=== PATIENT | female | born 1930 | race Caucasian/White ===

== ENCOUNTER 2016-11-30 12:24 | Inpatient (IN) | payer MEDICARE, MEDICAID ==
[~2016-11-30] VITALS: Ht 165.1 cm; Wt 63.0 kg
[2016-11-30 12:24] VITALS: BP_SYST 110
[2016-11-30] MEDS ORDERED: cefTRIAXone 1 GM IVPB PREMIX 50 ML IV ONE (12:45)
[2016-11-30] MEDS ORDERED: ACETAMINOPHEN 650 MG/20.3 ML UDC PO ONE (12:45)
[2016-11-30] MEDS ORDERED: TRAZ-126 PO (12:54)
[2016-11-30] MEDS ORDERED: METO25TA6 PO (12:54)
[2016-11-30] MEDS ORDERED: PARO20TA51 PO (12:54)
[2016-11-30] MEDS ORDERED: ALPR1TAB2 PO (12:54)
[2016-11-30] MEDS ORDERED: HYDR-1189 PO (12:54)
[2016-11-30] MEDS ORDERED: PRO40 PO (12:54)
[2016-11-30] MEDS ORDERED: ACET-2165 PO (12:54)
[2016-11-30] MEDS ORDERED: HYDR-3924 PO (12:54)
[2016-11-30] MEDS ORDERED: IPRA4AER INH (12:54)
[2016-11-30] MEDS ORDERED: FERR-57 PO (12:54)
[2016-11-30] MEDS ORDERED: BACL10TA PO (12:54)
[2016-11-30] MEDS ORDERED: ALPR0.2583 PO (12:54)
[2016-11-30] MEDS ORDERED: TEMA15CA51 PO (12:54)
[2016-11-30 13:00] LABS: BASOPHILS # (AUTO) 0.1 K/uL (0.0-0.2); BASOPHILS % (AUTO) 0.4 % (0.0-2.0); EOSINOPHILS # (AUTO) 0.1 K/uL (0.0-0.4); EOSINOPHILS % (AUTO) 0.3 % (0.0-4.0); HEMATOCRIT 30.9 % (36-48); HEMOGLOBIN 9.8 g/dL (12.0-16.0); LYMPHOCYTES # (AUTO) 1.3 K/uL (1.0-5.5); LYMPHOCYTES % (AUTO) 6.8 % (20.5-51.5); MEAN CORPUSCULAR HEMOGLOBIN 26 pg (27-31); MEAN CORPUSCULAR HGB CONC 32 % (32-36); MEAN CORPUSCULAR VOLUME 83 fL (79.0-98.0); MONOCYTES # (AUTO) 1.8 K/uL (0.0-1.0); MONOCYTES % (AUTO) 9.3 % (1.7-9.3); NEUTROPHILS # (AUTO) 15.6 K/uL (1.8-7.7); NEUTROPHILS % (AUTO) 83.2 % (40.0-70.0); PLATELET COUNT (AUTO) 643 K/uL (130-430); RED BLOOD CELL COUNT(AUTO) 3.74 MIL/uL (4.2-6.2); RED CELL DISTRIBUTION WIDTH 16.9 % (9.0-15.0); WHITE BLOOD COUNT (AUTO) 18.9 K/uL (4.8-10.8)
[2016-11-30] MEDS ORDERED: ACETAMINOPHEN 650 MG SUPP.RECT RC ONE (13:00)
[2016-11-30 13:14] LABS: ANION GAP 8 (5-15); CALCIUM 8.9 mg/dL (8.4-11.0); CHLORIDE 100 mmol/L (98-107); CREATININE 0.98 mg/dL (0.55-1.30); GLUCOSE 159 mg/dL (70-99); POTASSIUM 3.9 mmol/L (3.5-5.1); SODIUM SERUM 133 mmol/L (136-145); UREA NITROGEN, BLOOD 32 mg/dL (8-21)
[2016-11-30 13:15] LABS: BILIRUBIN,URINE NEGATIVE (NEGATIVE); BLOOD, URINE NEGATIVE (NEGATIVE); CLARITY/URINE CLEAR (CLEAR); COLOR,URINE YELLOW (YELLOW); GLUCOSE,URINE NEGATIVE (NEGATIVE); KETONES,URINE NEGATIVE (NEGATIVE); LEUKOCYTE ESTERASE ,URINE NEGATIVE (NEGATIVE); NITRITE, URINE NEGATIVE (NEGATIVE); PROTEIN URINE NEGATIVE (NEGATIVE); UROBILINOGEN,URINE 0.2 (0.2-1.0)
[2016-11-30 13:25] LABS: INR 1.3 (0.8-1.2); PROTHROMBIN TIME 12.9 SECS (9.5-12.5)
[2016-11-30 13:28] LABS: CANNABINOID, URINE NEGATIVE (NEG <=50); OPIATE, URINE POSITIVE (NEG <=100)
[2016-11-30 13:29] LABS: BENZODIAZEPINE, URINE POSITIVE (NEG <=150)
[2016-11-30 13:30] LABS: BARBITURATE, URINE NEGATIVE (NEG <=200); COCAINE, URINE NEGATIVE (NEG <=150); METHAMPHETAMINES SCREEN,URINE NEGATIVE (NEG <=500); PHENCYCLIDINE SCREEN,URINE NEGATIVE (NEG <=25); UR TRICYCLIC ANTIDEPRESSANTS NEGATIVE (NEG <=300); URINE AMPHETAMINE NEGATIVE (NEG <=500); URINE METHADONE NEGATIVE (NEG <=200); URINE OXYCODONE SCREEN NEGATIVE (NEG <=100); URINE PROPOXYPHENE SCREEN NEGATIVE (NEG <=300)
[2016-11-30] MEDS ORDERED: NS 500 ML IV ONE ×2 (13:30→14:30)
[2016-11-30] MEDS ORDERED: DIGOXIN 0.5 MG/2 ML AMP IVP ONE (13:30)
[2016-11-30 13:31] LABS: ALANINE AMINOTRANSFERASE 54 U/L (12-78); ALBUMIN 2.3 g/dL (3.4-4.8); ALCOHOL, BLOOD 3 mg/dL (<10); ASPARTATE AMINOTRANSFERASE 99 U/L (10-37); FREE T4 (FREE THYROXINE) 0.7 ng/dL (0.6-1.6); TOTAL BILIRUBIN 0.3 mg/dL (0.0-1.0)
[2016-11-30] MEDS ORDERED: DILTIAZEM HCL 25 MG/5 ML VIAL IVP ONE (14:30)
[2016-11-30] MEDS ORDERED: ONDANSETRON HCL 4 MG/2 ML VIAL IVP PRN (14:30)
[2016-11-30] MEDS ORDERED: ASPIRIN 81 MG TAB.CHEW PO ONE (14:30)
[2016-11-30] MEDS ORDERED: DILTIAZEM HCL 30 MG TABLET PO ONE (14:30)
[2016-11-30] MEDS ORDERED: NITROGLYCERIN 0.4 MG TAB.SUBL SL PRN (14:30)
[2016-11-30] MEDS ORDERED: ASPIRIN 81 MG TAB.CHEW ONE (14:37)
[2016-11-30 15:00] LABS: FREE T4 (FREE THYROXINE) 0.7 ng/dL (0.6-1.6); PHOSPHORUS 3.3 mg/dL (2.7-4.5); THYROID STIMULATING HORMONE 1.9 uIu/mL (0.34-4.82)
[2016-11-30 15:32] VITALS: BP_SYST 90
[2016-11-30] MEDS ORDERED: *HEPARIN PER PHARMACY XX ONE (16:00)
[2016-11-30] MEDS ORDERED: HEPARIN SODIUM,PORCINE 5000 UNITS/ML VIAL IV ONE (16:30)
[2016-11-30] MEDS ORDERED: HEPARIN SODIUM,PORCINE 2000 UNITS/0.4 ML BOLUS IVP PRN (16:30)
[2016-11-30] MEDS ORDERED: HEPARIN SODIUM,PORCINE 3000 UNITS/0.6 ML BOLUS IVP PRN (16:30)
[2016-11-30 16:44] VITALS: BP_SYST 115
[2016-11-30] MEDS: NACL 0.9% 1,000 ML IV SCH (17:22)
[2016-11-30] MEDS: HEPARIN 25,000 UNITS in 250 ML PREMIX IV PRN (18:02)
[2016-11-30] MEDS ORDERED: PIPERACILLIN/TAZOBACTAM 2.25 GM in NS 50 ML IV ONE (20:00)
[2016-11-30 20:17] VITALS: BP_SYST 117
[2016-11-30] MEDS: METOPROLOL TARTRATE 25 MG TABLET PO SCH ×2 (21:00→21:05)
[2016-11-30] MEDS: DOCUSATE SODIUM 100 MG CAPSULE PO SCH ×2 (21:00→21:04)
[2016-11-30] MEDS: FERROUS SULFATE 325 MG TABLET.DR PO SCH ×2 (21:00→21:04)
[2016-11-30] MEDS: DILTIAZEM HCL 30 MG TABLET PO SCH (22:00)
[2016-11-30] MEDS: DILTIAZEM HCL 25 MG/5 ML VIAL IVP PRN (22:09)
[2016-12-01 00:18] VITALS: BP_SYST 106
[2016-12-01] MEDS: DILTIAZEM HCL 25 MG/5 ML VIAL IVP PRN (03:36)
[2016-12-01 04:31] VITALS: BP_SYST 120
[2016-12-01] MEDS: DILTIAZEM HCL 30 MG TABLET PO SCH ×3 (06:00→21:36)
[2016-12-01] MEDS: MORPHINE 2 MG/ML INJ. SYRINGE IVP PRN ×3 (07:50→22:55)
[2016-12-01 07:57] LABS: BASOPHILS # (AUTO) 0.1 K/uL (0.0-0.2); BASOPHILS % (AUTO) 0.3 % (0.0-2.0); EOSINOPHILS # (AUTO) 0.1 K/uL (0.0-0.4); EOSINOPHILS % (AUTO) 0.4 % (0.0-4.0); HEMATOCRIT 31.1 % (36-48); HEMOGLOBIN 9.9 g/dL (12.0-16.0); LYMPHOCYTES # (AUTO) 1.3 K/uL (1.0-5.5); LYMPHOCYTES % (AUTO) 6.4 % (20.5-51.5); MEAN CORPUSCULAR HEMOGLOBIN 26 pg (27-31); MEAN CORPUSCULAR HGB CONC 32 % (32-36); MEAN CORPUSCULAR VOLUME 83 fL (79.0-98.0); MONOCYTES # (AUTO) 0.8 K/uL (0.0-1.0); NEUTROPHILS # (AUTO) 17.3 K/uL (1.8-7.7); NEUTROPHILS % (AUTO) 88.9 % (40.0-70.0); PLATELET COUNT (AUTO) 734 K/uL (130-430); RED BLOOD CELL COUNT(AUTO) 3.76 MIL/uL (4.2-6.2); RED CELL DISTRIBUTION WIDTH 16.8 % (9.0-15.0); WHITE BLOOD COUNT (AUTO) 19.6 K/uL (4.8-10.8)
[2016-12-01 08:14] VITALS: BP_SYST 118
[2016-12-01 08:14] LABS: ANION GAP 7 (5-15); CALCIUM 8.7 mg/dL (8.4-11.0); CHLORIDE 104 mmol/L (98-107); CHOLESTEROL 125 mg/dL (<200); CREATININE 0.86 mg/dL (0.55-1.30); GLUCOSE 105 mg/dL (70-99); HDL CHOLESTEROL 31 mg/dL (>55); LDL CHOLESTEROL 85 mg/dL (<100); SODIUM SERUM 136 mmol/L (136-145); TRIGLYCERIDES 126 mg/dL (30-150); UREA NITROGEN, BLOOD 25 mg/dL (8-21)
[2016-12-01] MEDS ORDERED: DILTIAZEM HCL 30 MG TABLET PO ONE (08:15)
[2016-12-01] MEDS: PANTOPRAZOLE SODIUM 40 MG TAB PO SCH (08:33)
[2016-12-01 08:38] LABS: T4 (THYROXINE) 6.6 ug/dL (4.5-12.0)
[2016-12-01] MEDS: PARoxetine HCL 20 MG TABLET PO SCH (08:40)
[2016-12-01] MEDS: METOPROLOL TARTRATE 25 MG TABLET PO SCH ×2 (08:40→21:35)
[2016-12-01] MEDS: FERROUS SULFATE 325 MG TABLET.DR PO SCH ×2 (08:40→21:34)
[2016-12-01] MEDS: LISINOPRIL 10 MG TABLET (PRINIVIL) PO SCH (08:41)
[2016-12-01] MEDS: ATORVASTATIN 20 MG TABLET PO SCH (09:06)
[2016-12-01] MEDS: ASPIRIN 81 MG TAB.CHEW PO SCH (09:06)
[2016-12-01] MEDS: DOCUSATE SODIUM 100 MG CAPSULE PO SCH ×2 (09:06→21:34)
[2016-12-01] MEDS: NACL 0.9% 1,000 ML IV SCH (09:10)
[2016-12-01] MEDS: ACETAMINOPHEN 325 MG TABLET PO PRN (11:00)
[2016-12-01 13:03] VITALS: BP_SYST 104
[2016-12-01] MEDS: HEPARIN 25,000 UNITS in 250 ML PREMIX IV PRN ×2 (15:04→23:09)
[2016-12-01 16:54] VITALS: BP_SYST 110
[2016-12-01 17:06] LABS: BILIRUBIN,URINE NEGATIVE (NEGATIVE); BLOOD, URINE 3+ (NEGATIVE); CLARITY/URINE HAZY (CLEAR); COLOR,URINE YELLOW (YELLOW); GLUCOSE,URINE NEGATIVE (NEGATIVE); KETONES,URINE NEGATIVE (NEGATIVE); LEUKOCYTE ESTERASE ,URINE NEGATIVE (NEGATIVE); NITRITE, URINE NEGATIVE (NEGATIVE); PROTEIN URINE TRACE (NEGATIVE)
[2016-12-01 17:35] LABS: BACTERIA,URINE MODERATE /HPF (None Seen); RBC,URINE 50-80 /HPF (0-3)
[2016-12-01 17:36] LABS: MUCUS,URINE 1+ /LPF (None Seen)
[2016-12-01] MEDS: PIPERACILLIN/TAZO 2.25G/DEX-IS 50 ML IV SCH ×2 (17:58→23:01)
[2016-12-01 20:00] VITALS: BP_SYST 126
[2016-12-01 20:17] LABS: HEMOGLOBIN A1C 5.7 % (4.8-5.6)
[2016-12-02 00:49] VITALS: BP_SYST 100; BP_SYST 81
[2016-12-02] MEDS: NACL 0.9% 1,000 ML IV SCH ×2 (02:11→16:15)
[2016-12-02] MEDS ORDERED: FLU VACC QS 2017-18(36MOS+)/PF 0.5 ML/SYR SYRINGE I.M. PRN (03:00)
[2016-12-02 04:37] VITALS: BP_SYST 101
[2016-12-02] MEDS: DILTIAZEM HCL 30 MG TABLET PO SCH ×3 (05:35→22:00)
[2016-12-02] MEDS: PIPERACILLIN/TAZO 2.25G/DEX-IS 50 ML IV SCH ×4 (05:35→23:53)
[2016-12-02 08:00] VITALS: BP_SYST 88
[2016-12-02] MEDS: FERROUS SULFATE 325 MG TABLET.DR PO SCH ×2 (08:31→20:23)
[2016-12-02] MEDS: ASPIRIN 81 MG TAB.CHEW PO SCH (08:31)
[2016-12-02] MEDS: DOCUSATE SODIUM 100 MG CAPSULE PO SCH ×2 (08:33→20:23)
[2016-12-02] MEDS: PANTOPRAZOLE SODIUM 40 MG TAB PO SCH (08:33)
[2016-12-02] MEDS: PARoxetine HCL 20 MG TABLET PO SCH (08:33)
[2016-12-02] MEDS: ACETAMINOPHEN 325 MG TABLET PO PRN (08:33)
[2016-12-02] MEDS: ATORVASTATIN 20 MG TABLET PO SCH (08:34)
[2016-12-02] MEDS: LISINOPRIL 10 MG TABLET (PRINIVIL) PO SCH (09:00)
[2016-12-02] MEDS: METOPROLOL TARTRATE 25 MG TABLET PO SCH ×2 (09:00→20:28)
[2016-12-02] MEDS: HEPARIN 25,000 UNITS in 250 ML PREMIX IV PRN (09:59)
[2016-12-02 12:45] VITALS: BP_SYST 101
[2016-12-02 16:45] VITALS: BP_SYST 107
[2016-12-02 20:00] VITALS: BP_SYST 113
[2016-12-03 00:38] VITALS: BP_SYST 112
[2016-12-03 04:29] VITALS: BP_SYST 111
[2016-12-03] MEDS: HEPARIN 25,000 UNITS in 250 ML PREMIX IV PRN (04:42)
[2016-12-03] MEDS: PIPERACILLIN/TAZO 2.25G/DEX-IS 50 ML IV SCH ×3 (05:40→17:16)
[2016-12-03] MEDS: DILTIAZEM HCL 30 MG TABLET PO SCH ×3 (05:49→21:36)
[2016-12-03] MEDS: DILTIAZEM HCL 25 MG/5 ML VIAL IVP PRN (06:08)
[2016-12-03 06:21] LABS: BASOPHILS # (AUTO) 0.1 K/uL (0.0-0.2); BASOPHILS % (AUTO) 0.3 % (0.0-2.0); EOSINOPHILS % (AUTO) 0.1 % (0.0-4.0); HEMATOCRIT 27.3 % (36-48); HEMOGLOBIN 8.8 g/dL (12.0-16.0); LYMPHOCYTES # (AUTO) 0.8 K/uL (1.0-5.5); MEAN CORPUSCULAR HEMOGLOBIN 26 pg (27-31); MEAN CORPUSCULAR HGB CONC 32 % (32-36); MEAN CORPUSCULAR VOLUME 81 fL (79.0-98.0); MONOCYTES # (AUTO) 0.9 K/uL (0.0-1.0); MONOCYTES % (AUTO) 3.2 % (1.7-9.3); NEUTROPHILS # (AUTO) 25.8 K/uL (1.8-7.7); NEUTROPHILS % (AUTO) 93.4 % (40.0-70.0); RED BLOOD CELL COUNT(AUTO) 3.36 MIL/uL (4.2-6.2); WHITE BLOOD COUNT (AUTO) 27.6 K/uL (4.8-10.8)
[2016-12-03 06:28] LABS: PLATELET COUNT (AUTO) 824 K/uL (130-430)
[2016-12-03 06:37] LABS: ANION GAP 11 (5-15); CALCIUM 8.3 mg/dL (8.4-11.0); CHLORIDE 100 mmol/L (98-107); CREATININE 0.85 mg/dL (0.55-1.30); GLUCOSE 121 mg/dL (70-99); PHOSPHORUS 2.7 mg/dL (2.7-4.5); POTASSIUM 3.6 mmol/L (3.5-5.1); SODIUM SERUM 132 mmol/L (136-145); UREA NITROGEN, BLOOD 23 mg/dL (8-21)
[2016-12-03 08:05] VITALS: BP_SYST 109
[2016-12-03] MEDS: NACL 0.9% 1,000 ML IV SCH (08:06)
[2016-12-03] MEDS: FERROUS SULFATE 325 MG TABLET.DR PO SCH ×2 (08:07→21:33)
[2016-12-03] MEDS: LISINOPRIL 10 MG TABLET (PRINIVIL) PO SCH (08:07)
[2016-12-03] MEDS: DOCUSATE SODIUM 100 MG CAPSULE PO SCH ×2 (08:07→21:36)
[2016-12-03] MEDS: PARoxetine HCL 20 MG TABLET PO SCH (08:07)
[2016-12-03] MEDS: METOPROLOL TARTRATE 25 MG TABLET PO SCH ×2 (08:07→21:32)
[2016-12-03] MEDS: ATORVASTATIN 20 MG TABLET PO SCH (08:07)
[2016-12-03] MEDS: PANTOPRAZOLE SODIUM 40 MG TAB PO SCH (08:07)
[2016-12-03] MEDS: ASPIRIN 81 MG TAB.CHEW PO SCH (08:08)
[2016-12-03 11:32] VITALS: BP_SYST 109
[2016-12-03] MEDS ORDERED: HYDROmorphone 1 MG INJ. 1 MG/ML AMPUL IVP PRN (14:45)
[2016-12-03 15:38] VITALS: BP_SYST 116
[2016-12-03 20:10] VITALS: BP_SYST 114
[2016-12-04 00:21] VITALS: BP_SYST 125
[2016-12-04] MEDS: PIPERACILLIN/TAZO 2.25G/DEX-IS 50 ML IV SCH ×4 (00:50→17:08)
[2016-12-04] MEDS: HEPARIN 25,000 UNITS in 250 ML PREMIX IV PRN (03:19)
[2016-12-04] MEDS: NACL 0.9% 1,000 ML IV SCH ×2 (04:50→17:06)
[2016-12-04] MEDS: DILTIAZEM HCL 30 MG TABLET PO SCH ×3 (05:03→22:17)
[2016-12-04 05:52] VITALS: BP_SYST 121
[2016-12-04 06:25] LABS: HEMATOCRIT 25.9 % (36-48); HEMOGLOBIN 8.4 g/dL (12.0-16.0); MEAN CORPUSCULAR HEMOGLOBIN 27 pg (27-31); MEAN CORPUSCULAR HGB CONC 33 % (32-36); MEAN CORPUSCULAR VOLUME 82 fL (79.0-98.0); RED BLOOD CELL COUNT(AUTO) 3.16 MIL/uL (4.2-6.2); RED CELL DISTRIBUTION WIDTH 17.2 % (9.0-15.0)
[2016-12-04 06:49] LABS: ANION GAP 12 (5-15); CALCIUM 8.3 mg/dL (8.4-11.0); CHLORIDE 101 mmol/L (98-107); CREATININE 0.82 mg/dL (0.55-1.30); GLUCOSE 158 mg/dL (70-99); PHOSPHORUS 2.5 mg/dL (2.7-4.5); POTASSIUM 3.3 mmol/L (3.5-5.1); SODIUM SERUM 132 mmol/L (136-145); UREA NITROGEN, BLOOD 25 mg/dL (8-21)
[2016-12-04 07:34] LABS: WHITE BLOOD COUNT (AUTO) 31.5 K/uL (4.8-10.8)
[2016-12-04 07:35] LABS: PLATELET COUNT (AUTO) 780 K/uL (130-430)
[2016-12-04 08:16] VITALS: BP_SYST 118
[2016-12-04] MEDS: PANTOPRAZOLE SODIUM 40 MG TAB PO SCH (08:38)
[2016-12-04] MEDS: ATORVASTATIN 20 MG TABLET PO SCH (08:38)
[2016-12-04] MEDS: ASPIRIN 81 MG TAB.CHEW PO SCH (08:38)
[2016-12-04] MEDS: FERROUS SULFATE 325 MG TABLET.DR PO SCH ×2 (08:38→21:08)
[2016-12-04] MEDS: METOPROLOL TARTRATE 25 MG TABLET PO SCH ×2 (08:38→21:10)
[2016-12-04] MEDS: PARoxetine HCL 20 MG TABLET PO SCH (08:38)
[2016-12-04] MEDS: DOCUSATE SODIUM 100 MG CAPSULE PO SCH ×2 (08:38→21:08)
[2016-12-04] MEDS: LISINOPRIL 10 MG TABLET (PRINIVIL) PO SCH (08:39)
[2016-12-04 08:57] LABS: BASOPHILS % (MANUAL) 0 % (0-2); EOSINOPHILS % (MANUAL) 0 % (0-7); LYMPHOCYTES % (MANUAL) 5 % (20-46); MONOCYTES % (MANUAL) 6 % (0-11)
[2016-12-04] MEDS ORDERED: IOHEXOL 350 mgI/mL, 150 ML INFUS..BTL IV ONE (10:46)
[2016-12-04 12:33] VITALS: BP_SYST 120
[2016-12-04] MEDS: VANCOMYCIN HCL 1,000 MG in NS 250 ML IV SCH (13:12)
[2016-12-04] MEDS: MORPHINE 2 MG/ML INJ. SYRINGE IVP PRN (13:57)
[2016-12-04] MEDS ORDERED: LORazepam 2 MG/ML VIAL IM ONE (14:30)
[2016-12-04] MEDS: KCL 20 mEq in 0.45% NS 1000 mL 1,000 ML IV SCH (14:46)
[2016-12-04 17:04] VITALS: BP_SYST 104
[2016-12-04] MEDS ORDERED: FLUCONAZOLE 200 mg/ NS 100 ML IV ONE (18:00)
[2016-12-04 20:00] VITALS: BP_SYST 116
[2016-12-05 00:14] VITALS: BP_SYST 108
[2016-12-05] MEDS: PIPERACILLIN/TAZO 2.25G/DEX-IS 50 ML IV SCH ×3 (00:28→11:10)
[2016-12-05] MEDS: HEPARIN 25,000 UNITS in 250 ML PREMIX IV PRN (02:36)
[2016-12-05] MEDS: KCL 20 mEq in 0.45% NS 1000 mL 1,000 ML IV SCH ×2 (02:44→11:01)
[2016-12-05 06:10] VITALS: BP_SYST 111
[2016-12-05] MEDS: DILTIAZEM HCL 30 MG TABLET PO SCH ×2 (06:12→14:42)
[2016-12-05 08:55] VITALS: BP_SYST 102
[2016-12-05] MEDS: FERROUS SULFATE 325 MG TABLET.DR PO SCH (10:28)
[2016-12-05] MEDS: ATORVASTATIN 20 MG TABLET PO SCH (10:29)
[2016-12-05] MEDS: PANTOPRAZOLE SODIUM 40 MG TAB PO SCH (10:29)
[2016-12-05] MEDS: PARoxetine HCL 20 MG TABLET PO SCH (10:29)
[2016-12-05] MEDS: ASPIRIN 81 MG TAB.CHEW PO SCH (10:30)
[2016-12-05] MEDS: LISINOPRIL 10 MG TABLET (PRINIVIL) PO SCH (10:30)
[2016-12-05] MEDS: DOCUSATE SODIUM 100 MG CAPSULE PO SCH (10:30)
[2016-12-05] MEDS: METOPROLOL TARTRATE 25 MG TABLET PO SCH (10:31)
[2016-12-05] MEDS ORDERED: LORazepam 2 MG/ML VIAL IVP PRN (10:45)
[2016-12-05 11:16] VITALS: BP_SYST 116
[2016-12-05] MEDS: VANCOMYCIN HCL 1,000 MG in NS 250 ML IV SCH (12:12)
[2016-12-05 16:23] VITALS: BP_SYST 98
[2016-12-05 17:56] VITALS: BP_SYST 98
== END 2016-12-05 18:30 | DRG 871 ==
LOC: SED 12:24 → STU 14:19
PROVIDERS: ADMIT Family Medicine; ATTEND Family Medicine
DX: A41.9 Sepsis, unspecified organism (principal); I21.A1 Myocardial infarction type 2; J69.0 Pneumonitis due to inhalation of food and vomit; G93.41 Metabolic encephalopathy; I96 Gangrene, not elsewhere classified; E87.1 Hypo-osmolality and hyponatremia; N39.0 Urinary tract infection, site not specified; D64.9 Anemia, unspecified; D75.89 Other specified diseases of blood and blood-forming organs; F03.90 Unspecified dementia, unspecified severity, without behavioral disturbance, psychotic disturbance, mood disturbance, and anxiety; F41.1 Generalized anxiety disorder; I48.91 Unspecified atrial fibrillation; I73.9 Peripheral vascular disease, unspecified; K56.41 Fecal impaction; E78.5 Hyperlipidemia, unspecified; N18.9 Chronic kidney disease, unspecified; R62.7 Adult failure to thrive; Z51.5 Encounter for palliative care; M62.838 Other muscle spasm; M62.81 Muscle weakness (generalized); R26.81 Unsteadiness on feet; Z79.899 Other long term (current) drug therapy; Z90.49 Acquired absence of other specified parts of digestive tract
CPT/HCPCS: 36415; 70450-TC; 71010; 73706; 74000-TC; 80048; 80053; 80061; 80307; 81000-TC; 81003; 82140-TC; 82150-TC; 83036; 83605; 83690-TC; 83735-TC; 83880; 84100-TC; 84436; 84439; 84443-TC; 84479; 84484; 85007; 85025; 85027; 85610-TC; 85730-TC; 87040-TC; 87081; 87086; 93005; 93306; 93923; 96365; 96375; 97110-GP; 97530-GP; 99285; G0482; J0696; J1160; J1450; J1644; J2060; J2270; J2543; J3370; J3480; J3490; J7030; J7040; J7050; Q2037; Q9967